=== PATIENT | male | born 1940 | race Caucasian/White ===

== ENCOUNTER 2018-08-16 14:46 | Observation (INO) ==
[2018-08-16] MEDS ORDERED: 0.9 % Sodium Chloride 1,000 ML IVC ONE ×2 (15:31→18:06)
--- NOTE | 2018-08-16 15:32 | Emergency Department Note ---
Disposition Clinical Impression: Acute kidney injury Disposition: Admitted As Inpatient Condition: Good Time of Disposition: 18:04 Recheck wound or abnormal lab - General Chief Complaint: ED Recheck/Abnormal Lab/Rx Stated Complaint: Abnormal Labs Time Seen by Provider: 08/16/18 15:09 Source: patient, family (Daughter) Mode of arrival: ambulatory Limitations: no limitations Nursing Notes Reviewed: Yes Vital Signs Reviewed: Yes - History of Present Illness HPI Narrative: 78-year-old male history of chronic kidney disease, diabetes, hypertension presents to the emergency department for abnormal labs. States over the past few days he has been having increased fatigue and leg cramping. He was seen by his primary care provider today were lab work was performed. He was sent home a round noon was called with abnormal results and told to come back for reevaluation. Review of his labs shows an elevated potassium of 5.2 in a creatinine of 1.9. This appears above baseline. He is also being treated for deep vein thrombosis on Xarelto over the past 5 weeks. He denies any other s ymptoms such as lightheadedness, chest pain, shortness of breath, nausea, vomiting. He reports a good diet. Reports darker urine denies any dysuria. Denies any G.I. bleed symptoms. He takes lisinopril as well as a thiazide. He does not take any potassium supplements. Pt Subjective Complaint: abnormal lab(s) - Related Data Home Medications Medication Instructions Recorded Confirmed Furosemide [Lasix] 20 mg PO DAILY 05/02/17 08/16/18 Insulin DETEMIR [Levemir Flextouch] 45 unit SQ HS 05/02/17 08/16/18 Lisinopril [Zestril] 40 mg PO DAILY 05/02/17 08/16/18 Metformin HCl [Glumetza] 500 mg PO BID 05/22/18 08/16/18 Levothyroxine [Synthroid] 150 mcg PO DAILY@0630 08/16/18 08/16/18 Previous Rx's Medication Instructions Recorded Aspirin Enteric Coated [Aspirin EC] 81 mg PO DAILY #30 tablet. 05/23/18 Rivaroxaban [Xarelto] 1 dose PO AD 30 Days pack 07/06/18 Allergies Allergy/AdvReac Type Severity Reaction Status Date / Time No Known Allergies Allergy Verified 05/22/18 21:56 All systems ED: reviewed and negative except as stated. Review of Systems: As Per HPI Constitutional: Reports: weakness. Denies: fever, chills ENT ED: Denies: congestion Cardiovascular: Denies: chest pain Respiratory: Denies: dyspnea, hemoptysis Gastrointestinal: Denies: abdominal pain, nausea, vomiting, diarrhea, hematemesis, melena, hematochezia Genitourinary: Denies: urgency, dysuria, hematuria Musculoskeletal: Denies: back pain Neurological: Denies: headache Past Medical History - Past Medical History Attestation: Yes The following information was validated with the patient. Source: patient Medical history: Reports: DVT, diabetes, hypertension, thyroid disease Surgical history: Reports: appendectomy, cholecystectomy, herniorrhaphy Psychiatric history: Reports: no psych history - Social History Smoking Status: Former smoker Smokeless Tobacco Status: No Alcohol use: Reports: none Drug use: Reports: none Physical Exam - General Limitations: no limitations General appearance: alert, in no apparent distress - Head Head exam: atraumatic, normocephalic, normal inspection - Eye Eye exam: Present: normal appearance, EOMI - ENT ENT exam: normal exam, normal oropharynx, mucous membranes moist - Neck Neck exam: Present: normal inspection, full ROM, trachea midline - Chest Chest inspection: Present: normal inspection, symmetric chest wall rise - Respiratory Respiratory exam: Present: normal lung sounds bilaterally. Absent: respiratory distress, wheezes - Cardiovascular Cardiovascular exam: Present: regular rate, normal rhythm, normal heart sounds - Expanded Cardiovascular Exam Peripheral pulses: 2+: radial (R), radial (L) - Abdominal Exam Abdominal exam: Present: soft, Non-Tender, normal bowel sounds. Absent: tenderness, distention, guarding, rebound, rigidity - Extremities Exam Extremities exam: Present: normal inspection, full ROM, normal capillary refill. Absent: tenderness, pedal edema - Back Exam Back exam: Present: normal inspection, full ROM. Absent: tenderness - Neurological Exam Neurological exam: Present: alert, oriented X3 - Psychiatric Psychiatric exam: Present: normal affect, normal mood - Skin Skin exam: Present: warm, dry, intact, normal color. Absent: rash, cyanosis, diaphoresis Course Course Narrative: Patient presents with abnormal labs. States past 2 days sees is not been feeling well with cramping in his leg can increased fatigue. Labs performed by his primary care provider showed elevated potassium 5.2 and elevated creatinine 1.9. Will repeat labs here in fluid hydrate. States after his outpatient visit he went home drink some lemonade and ate a sandwich. Reports otherwise normal diet. Disposition pending workup. - Reevaluation(s) Reevaluation #1: Repeat labs shows a rising creatinine of 2. His potassium is stable at 5.2. His EKG does not reveal any ischemic findings. No peak T waves they are similar to prior EKG. His QRS is 96 [place] 174. At this time recommend admission for further observation and evaluation. His urinalysis does not appear consistent with infection. Impression is acute kidney injury. Time: 18:03 - Consultations Consultation #1: Spoke with on-call hospitalist yoli Huertas to admit for JEANETTE. No further orders at this time Time: 18:03 Vital Signs Temperature 97.9 F 08/16/18 15:00 Pulse Rate 55 08/16/18 15:00 Respiratory Rate 18 08/16/18 15:00 Blood Pressure 115/67 08/16/18 15:00 O2 Sat by Pulse Oximetry 97 08/16/18 15:00 Temperature 97.9 F 08/16/18 15:20 Pulse Rate 48 08/16/18 17:20 Respiratory Rate 16 08/16/18 17:20 Blood Pressure 151/73 08/16/18 17:20 O2 Sat by Pulse Oximetry 100 08/16/18 17:20 Oxygen Delivery Oxygen Delivery Room Air Recheck wound or abnormal lab - MDM Narrative Medical decision making narrative: Patient was discussed with my attending physician who agrees with ED management and final disposition. They independently evaluated the patient. Please refer to their attestation to this encounter for additional information. This note was generated by [employer] voice recognition software and as a result grammatical or spelling errors may occur using this program. - Medical Records Medical records reviewed: Yes I reviewed the patient's medical records. - Lab Data Lab results reviewed: Yes I reviewed the patient's lab results. Result diagrams: 08/16/18 15:41 Lab Results 08/16/18 08/16/18 Range/Units 15:41 16:08 Sodium 137 (136-145) mEq/L Potassium 5.2 H (3.5-5.1) mEq/L Chloride 104 (98-107) mEq/L Carbon Dioxide 25 (23-29) mEq/L BUN 37 H (8-23) mg/dL Creatinine 2.04 H (0.70-1.30) mg/dL Est GFR ( Amer) 38 L (> 60) Est GFR (Non-Af Amer) 32 L (> 60) BUN/Creatinine Ratio 18 (6-26) Glucose 290 H (70-105) mg/dL Calculated Osmolality 303 H (280-300) Calcium 12.8 H (8.6-10.3) mg/dL Urine Color Dark Yellow (Yellow) Urine Clarity Clear (Clear) Urine pH 5.5 (5.0-8.0) pH Units Ur Specific [place] 1.024 (1.010-1.025) Urine Protein Negative (Neg-Trace) mg/dL Urine Glucose (UA) 250 H (Normal) mg/dL Urine Ketones Negative (Negative) mg/dL Urine Blood Negative (Negative) Urine Nitrite Negative (Negative) Urine Bilirubin Negative (Negative) Urine Urobilinogen Normal (Normal) mg/dL Ur Leukocyte Esterase Negative (Negative) Ur Culture Indicated? NO (NO) - EKG Data EKG attestation: Yes I reviewed and interpreted this EKG. EKG results narrative: EKG performed 1531 sinus bradycardia 49 beats per minute, no ST elevation or depression, intervals within normal limits [place] interval 174 QRS 96 QT QTC 405 366. Compared to prior EKG performed 07/06/2017 which shows similar consistent findings. No acute ischemic changes. Attestation Statement - Attestation Attestation: I, Kenton Bazzi, examined this patient and my medical decision-making was reviewed with the IT SUPPORT TECHNICIAN/PA/Advanced Practice Nurse/Resident Physician. I agree with the documented findings, disposition and treatment plan as described except to the extent set forth below. 78-year-old male presents emergency Department with concerns of abnormal labs. Patient had outpatient labs taken by his primary care provider which showed elevated creatinine. Patient does state that he is been mildly weak and fatigued over the past few days however he denies vomiting, diarrhea, recent changes in his medications. He states his diet has not changed. He had elevated creatinine on recheck the emergency department. He is awake alert and answering questions appropriately. Vital signs are stable in emergency department. He has no specific complaints other than mild weakness and fatigue. Patient will be admitted to the hospitalist for further treatment of his JEANETTE. Vital signs stable in emergency department.
[2018-08-16 16:25] LABS: Bilirubin,Urine Negative (Negative); Blood,Urine Negative (Negative); Clarity,Urine Clear (Clear); Color,Urine Dark Yellow (Yellow); Glucose,Urine (UA) 250 mg/dL (Normal); Ketones,Urine Negative (Negative); Leukocyte Esterase,Urine Negative (Negative); Nitrite,Urine Negative (Negative); PH,Urine 5.5 pH Units (5.0-8.0); Protein,Urine Negative (Neg-Trace); Specific Gravity,Urine 1.024 (1.010-1.025); Urobilinogen,Urine Normal (Normal)
[2018-08-16 16:29] LABS: Calcium 12.8 mg/dL (8.6-10.3); Potassium 5.2 mEq/L (3.5-5.1)
[2018-08-16] MEDS ORDERED: 0.9 % Sodium Chloride 1,000 ML IVC SCH ×2 (18:15→18:50)
[2018-08-16] MEDS ORDERED: Naloxone 0.4 MG/ML INJ IVP PRN (18:18)
--- NOTE | 2018-08-16 18:21 | Internal Med History&Physical ---
Date of Encounter: 08/16/18 Time of Encounter: 18:19 Internal Medicine - H&P: HPI Chief complaint: abnormal labs Plans for Post Hospital Care: Home History of present illness: Mr. Guerra is a 78 year old male with past medical history of diabetes, hypertension, hypothyroidism, prostate cancer status post surgery, hyperparathyroidism who recently was diagnosed with DVT and started on was also went to PCP for complaint of fatigue and leg cramps was found to have abnormal labs ordered by PCP and was asked to come to ER. Patient takes lisinopril, metformin, levothyroxine, aspirin xarelto. Patient had left leg DVT diagnosed which was unprovoked and was started on xarelto. Patient has known hyperparathyroidism and was supposed to follow-up with ENT sewn for consideration of parathyroidectomy. Patient denies any other complaints besides 's fatigue necessary and leg cramps. Denies any chest pain difficulty breathing. Feels his lower extremity swelling has decreased. Denies any abdominal pain. Patient Showed JEANETTE and mild hyperkalemia. Patient has known history of sinus bradycardia. He denies any chest pain, palpitations and lig htheadedness or dizziness. He he mows his lawn by himself and denies any symptoms with exertion. Past Med Surg Social Fam HX - Past Medical History Medical history: DVT, diabetes, hypertension, thyroid disease Additional medical history: prostate cancer Psychiatric history: no psych history - Past Surgical History Surgical History: appendectomy, cholecystectomy, herniorrhaphy Additional surgical history: back sx, prostectomy - Social History Smoking Status: Former smoker Smokeless Tobacco Status: No Alcohol use: none Drug use: none - Additional Family History Additional family history: non contributory Internal Medicine - H&P: Meds Furosemide [Lasix] 20 mg PO DAILY 05/02/17 [History] Insulin DETEMIR [Levemir Flextouch] 45 unit SQ HS 05/02/17 [History] Lisinopril [Zestril] 40 mg PO DAILY 05/02/17 [History] Metformin HCl [Glumetza] 500 mg PO BID 05/22/18 [History] Aspirin Enteric Coated [Aspirin EC] 81 mg PO DAILY #30 tablet. 05/23/18 [Rx] Rivaroxaban [Xarelto] 1 dose PO AD 30 Days pack 07/06/18 [Rx] Levothyroxine [Synthroid] 150 mcg PO DAILY@0630 08/16/18 [History] Allergy/AdvReac Type Severity Reaction Status Date / Time No Known Allergies Allergy Verified 05/22/18 21:56 All Systems PM: A 10-system review of systems was performed and is negative for pertinent findings except as documented above in the HPI. - Constitutional Vitals: Temp Pulse Resp BP Pulse Ox 97.9 F 48 16 151/73 100 08/16/18 15:20 08/16/18 17:20 08/16/18 17:20 08/16/18 17:20 08/16/18 17:20 Exam: Constitutional: Vitals as noted. Conversant. No Apparent Distress. Eyes : Sclera white, conjunctiva clear, no lid lag, PEARLA. ENT : Grossly normal hearing. Oropharyngeal exam unremarkable. Respiratory : Clear to auscultation bilaterally. No accessory muscle use, rales, rhonchi or wheezes Cardiovascular : bradycardia, +S1, +S2. no murmur, gallop, rubs. No chest wall tenderness GI/Abdominal : Soft, Non-tender, Non-distended, normal bowel sounds, soft, no peritoneal signs. no orgenomegaly or mass appreciated. no hernia. Musculoskeletal: no deformity noted. trace pedal edema b/l. warm extremities, pulses palpable and symmetrical in UE/LE. no calf tenderness. Neurological: AO X3, CN II-XII grossly intact, grossly normal motor and sensory exam. Skin: No skin rash, lesions or ulcers noted. Internal Med - H&P Results - Labs CBC & Chem 7: 08/16/18 15:41 Labs: BMP 08/16/18 15:41 Sodium 137 Potassium 5.2 H Chloride 104 Carbon Dioxide 25 BUN 37 H Creatinine 2.04 H Glucose 290 H Calcium 12.8 H Urine 08/16/18 Range/Units 16:08 Urine Color Dark Yellow (Yellow) Urine Clarity Clear (Clear) Urine pH 5.5 (5.0-8.0) pH Units Ur Specific [place] 1.024 (1.010-1.025) Urine Protein Negative (Neg-Trace) mg/dL Urine Glucose (UA) 250 H (Normal) mg/dL - EKG Data -: EKG Interpreted by Myself EKG shows normal: sinus rhythm (sinus bradycardia) - Assessment and Plan (1) Acute kidney injury Current Visit: Yes Status: Acute Assessment and plan: Likely related to hypercalcemia from hyperparathyroidism Patient received 2 L of fluid in ER. We will continue patient on maintenance IV fluids after finishing second bolus. Hold home lisinopril metformin and Lasix. Obtain a urine sodium, creatinine and osmolality and urea. (2) Bradycardia Current Visit: No Status: Acute Assessment and plan: Known history of sinus bradycardia without any symptoms monitor for now. (3) DVT prophylaxis Current Visit: No Status: Acute Assessment and plan: On xarelto for recently diagnosed DVT on left leg. (4) History of thyroidectomy Current Visit: No Status: Acute Assessment and plan: Has secondary hypo-thyroidism. Continue home levothyroxine. (5) Hypercalcemia Current Visit: No Status: Acute (6) Hyperparathyroidism Current Visit: No Status: Acute Assessment and plan: Known history and is to follow with ENT for consideration of parathyroidectomy as outpatient. (7) Hypertension Current Visit: No Status: Acute Assessment and plan: We will hold home lisinopril and Lasix. Keep on when necessary hydralazine for now. Qualifiers: Hypertension type: essential hypertension Qualified Code(s): I10 - Essential (primary) hypertension (8) Hypothyroidism Current Visit: No Status: Acute Assessment and plan: As above Qualifiers: Hypothyroidism type: acquired Qualified Code(s): E03.9 - Hypothyroidism, unspecified (9) Diabetes mellitus Current Visit: No Status: Chronic Assessment and plan: Keep patient on sliding scale insulin and Accu-Cheks and Levemir 30. Qualifiers: Diabetes mellitus type: type 2 Diabetes mellitus group home insulin use: with group home use Diabetes mellitus complication status: without complication Qualified Code(s): E11.9 - Type 2 diabetes mellitus without complications; Z79.4 - assisted (current) use of insulin - Time Spent With Patient Total time spent is greater than 50% in coordination of care (as documented) at patient's floor/unit and/or counseling patient:
[2018-08-16] MEDS ORDERED: *HR* Rivaroxaban 10 MG TABLET PO SCH (18:30)
[2018-08-16] MEDS ORDERED: Insulin DETEMIR 100 UNIT/ML X5UNITS SQ SCH (21:00)
[2018-08-16 21:13] LABS: Sodium, Urine 130.9 mEq/L
[2018-08-17 04:37] LABS: Calcium 11.3 mg/dL (8.6-10.3); Potassium 4.6 mEq/L (3.5-5.1)
[2018-08-17 06:31] LABS: Albumin 3.6 g/dL (3.5-5.7); Albumin/Globulin Ratio 1.7 (1.1-2.2); Bilirubin,Direct 0.2 mg/dL (0.0-0.2); Bilirubin,Indirect 0.5 mg/dL (0.0-1.2); Bilirubin,Total 0.7 mg/dL (0.3-1.0); Globulin 2.1 g/dL (2.4-3.5); Total Protein 5.7 g/dL (6.4-8.9)
[2018-08-17] MEDS ORDERED: *HR* Dextrose 50 % in Water (Syg) 50 ML SYRINGE IVP PRN (07:30)
[2018-08-17] MEDS ORDERED: D5% in Water 1,000 ML IVC PRN (07:30)
[2018-08-17] MEDS ORDERED: Dextrose Gel 15 GM/37.5 ML TUBE PO PRN ×2 (07:30)
[2018-08-17] MEDS: Insulin LISPRO 300 UNITS/3 ML VIAL SQ SCH ×2 (07:56→12:02)
[2018-08-17] MEDS ORDERED: Aspirin Enteric Coated 81 MG Tablet PO SCH (09:00)
[2018-08-17 09:37] LABS: VBG Ionized Calcium 1.59 mmol/L (1.15-1.35)
[2018-08-17] MEDS ORDERED: 0.9 % Sodium Chloride 1,000 ML IVC SCH (10:42)
[2018-08-17 11:45] VITALS: BP 157/75
--- NOTE | 2018-08-17 13:22 | Electrocardiograph Report ---
[address] [address] Test Date: 2018-08-16 Pat Name: Amrik Guerra Department: [id number] Room: 2A24 Gender: M Weapons Officer: : 1940 Requested By: Marquise Melgoza Order Number: [id number] Reading MD: Braden Murillo Measurements Intervals [place] Rate: 49 P: -15 [place]: 174 QRS: -9 QRSD: 96 T: 32 QT: 405 QTc: 366 Interpretive Statements Sinus bradycardia Ventricular premature complex Low voltage, precordial leads Abnormal R-wave progression, early transition Electronically Signed On 08-17-2018 13:21:02 EDT by Braden Murillo
[2018-08-17 15:18] LABS: Calcium 11.2 mg/dL (8.6-10.3); Potassium 4.8 mEq/L (3.5-5.1)
--- NOTE | 2018-08-17 15:44 | Discharge Summary ---
- NOTES TO OUTPATIENT PROVIDER Notes to Outpatient Provider: Patient would need close follow-up for his hypercalcemia and renal function. May need reconsideration of hyper parathyroidectomy if this continues to recur. Held patient's Lasix and lisinopril for now. Follow-up BMP within 3 days Date of Encounter: 08/17/18 Time of Encounter: 16:22 - Discharge Diagnosis (1) Acute kidney injury Priority: Primary Status: Acute (2) Bradycardia Priority: Secondary Status: Acute (3) DVT prophylaxis Priority: Secondary Status: Acute (4) History of thyroidectomy Priority: Secondary Status: Acute (5) Hypercalcemia Priority: Primary Status: Acute (6) Hyperparathyroidism Priority: Secondary Status: Acute (7) Hypertension Priority: Secondary Status: Acute Qualifiers: Hypertension type: essential hypertension Qualified Code(s): I10 - Essential (primary) hypertension (8) Hypothyroidism Priority: Secondary Status: Acute Qualifiers: Hypothyroidism type: acquired Qualified Code(s): E03.9 - Hypothyroidism, unspecified (9) Diabetes mellitus Priority: Secondary Status: Chronic Qualifiers: Diabetes mellitus type: type 2 Diabetes mellitus terminal worker insulin use: with custodial use Diabetes mellitus complication status: without complication Qualified Code(s): E11.9 - Type 2 diabetes mellitus without complications; Z79.4 - assisted (current) use of insulin Hospital course: Mr. Guerra is a 78 year old male with past medical history of diabetes, hypertension, hypothyroidism, hyperparathyroidism came in with abnormal labs with elevated potassium and JEANETTE. Patient was found to have significant hypercalcemia which likely led to JEANETTE from dehydration. Patient was given IV fluids after which his renal function improved and potassium normalize. His calcium improved. He is making good urine. He is insistent to leave and go home. Discussed need for more hydration does not want to stay in hospital. She will reasonable to follow-up as outpatient as soon as possible in early next week. We will give prescription for follow-up blood work early next week. We will stop lisinopril and Lasix on discharge. I asked the patient to drink plenty of water for at least 2-3 days. He understands the risk of leaving earlier and promised keep himself hydrated and follow up for appointments. He is at risk of developing again given his hypercalcemia and may need parathyroidectomy if continues to happen. Discharge discussed with: patient, family, nurse, social work - Time Spent with Patient Total time spent providing and/or coordinating discharge services: Time spent: Greater than 30 minutes (40) - Discharge Medications Prescriptions: Continued Insulin DETEMIR [Levemir Flextouch] 45 unit SQ HS Metformin HCl [Glumetza] 500 mg PO BID Aspirin Enteric Coated [Aspirin EC] 81 mg PO DAILY #30 tablet. Levothyroxine [Synthroid] 150 mcg PO DAILY@0630 Rivaroxaban [Xarelto] 20 mg PO 1700 Discontinued Lisinopril [Zestril] 40 mg PO DAILY Furosemide [Lasix] 20 mg PO DAILY Home Medications: Insulin DETEMIR [Levemir Flextouch] 45 unit SQ HS 05/02/17 [History] Metformin HCl [Glumetza] 500 mg PO BID 05/22/18 [History] Aspirin Enteric Coated [Aspirin EC] 81 mg PO DAILY #30 tablet. 05/23/18 [Rx] Levothyroxine [Synthroid] 150 mcg PO DAILY@0630 08/16/18 [History] Rivaroxaban [Xarelto] 20 mg PO 1700 08/17/18 [History] Allergies/Adverse Reactions: Allergy/AdvReac Type Severity Reaction Status Date / Time No Known Allergies Allergy Verified 05/22/18 21:56 Date of admission: 08/16/18 18:39 Primary care physician: Garcia Sandhu Jr, MD Discharging clinician: Rodney Emanuel - Constitutional Vitals: Temp Pulse Resp BP Pulse Ox 98.0 F 51 16 157/75 96 08/17/18 11:44 08/17/18 11:44 08/17/18 11:44 08/17/18 11:44 08/17/18 11:44 Exam: General: In no acute distress. Respiratory exam: CTAB. no accessory muscle use, rales, rhonchi, wheezes Cardiovascular exam: bradycardia, +S1, +S2. no murmur, gallop, rubs. GI/Abdominal exam: Non-tender, Non-distended, normal bowel sounds, soft, no peritoneal signs. Extremities exam: no pedal edema, pulses palpable in b/l lower extremities. no calf tenderness Neurological exam: CN II-XII intact, AO X3, no focal deficits. Skin exam: No skin rash - Patient Status Disposition: Home, Self-Care Condition: Good - Discharge Instructions Instructions: Hypercalcemia (DC) Follow Up With: Garcia Sandhu Jr, MD [Primary Care Provider] - 08/22/18 1:45 pm - Diet and Activity Activity: increase activity as tolerated
== END 2018-08-17 16:45 | disposition home or self-care (01) ==
LOC: EMEROOARM 14:46 → 2ANU 14:46
PROVIDERS: ADMIT Internal Medicine Nephrology; ATTEND Internal Medicine Nephrology

== ENCOUNTER 2020-07-09 11:46 | Observation (INO) ==
[2020-07-09 12:36] LABS: Basophils % 0.3 %; Eosinophils # 0.1 K/mcL (0.0-0.6); Eosinophils % 0.5 %; Hematocrit 39.1 % (37.5-50.1); Hemoglobin 12.4 g/dL (12.9-16.9); Immature Granulocytes % 1.1 % (0-4); Lymphocytes # 0.6 K/mcL (0.6-4.6); Lymphocytes % 5.9 %; Mean Corpuscular HGB Conc 31.7 g/dL (31.6-35.5); Mean Corpuscular Hemoglobin 28.1 pg (28.0-33.3); Mean Corpuscular Volume 88.7 fL (83.0-100.0); Mean Platelet Volume 10.6 fL (9.4-12.4); Monocytes % 9.5 %; Neutrophils # 8.8 K/mcL (1.6-8.9); Platelet Count 123 K/mcL (140-400); Red Blood Count 4.41 M/mcL (4.19-5.50); Red Cell Distribution Width 12.5 % (11.5-14.5); Segmented Neutrophils % 82.7 %; White Blood Count 10.7 K/mcL (4.3-11.1)
[2020-07-09 12:56] LABS: Calcium 12.6 mg/dL (8.6-10.3); Potassium 4.1 mEq/L (3.5-5.1)
[2020-07-09 15:06] LABS: Bacteria,Urine Few per hpf (None-Few); Bilirubin,Urine Negative (Negative); Blood,Urine Large (Negative); Clarity,Urine Turbid (Clear); Color,Urine Yellow (Yellow); Glucose,Urine (UA) Normal (Normal); Hyaline Casts,Urine Few per lpf (None Seen); Ketones,Urine Negative (Negative); Leukocyte Esterase,Urine Trace (Negative); Mucus,Urine Few per lpf (None-Few); Nitrite,Urine Positive (Negative); Protein,Urine 200 mg/dL (Neg-Trace); RBC,Urine 0-3 per hpf (0-3); Specific Gravity,Urine 1.024 (1.010-1.025); Squamous Epithelial Cell,Urine Few per hpf (None-Few); Urobilinogen,Urine Normal (Normal); WBC,Urine 15-30 per hpf (0-3)
[2020-07-09] MEDS ORDERED: cefTRIAXone 1,000 MG in Water for inj. (sterile) 10 ML IVP ONE (15:33)
[2020-07-09] MEDS ORDERED: Ondansetron 4 MG/2 ML VIAL IVP PRN (16:19)
[2020-07-09] MEDS ORDERED: Naloxone 0.4 MG/ML INJ IVP PRN (16:19)
[2020-07-09] MEDS ORDERED: D5% in Water 1,000 ML IVC PRN (16:46)
[2020-07-09] MEDS ORDERED: *HR* Dextrose 50 % in Water (Vial) 50 ML VIAL IVP PRN (16:46)
[2020-07-09] MEDS ORDERED: Dextrose Gel 15 GM/37.5 ML TUBE PO PRN ×2 (16:46)
[2020-07-09] MEDS ORDERED: Insulin DETEMIR 100 UNIT/ML X5UNITS SUBQ SCH (21:00)
[2020-07-09] MEDS: hydrALAZINE 25 MG TABLET PO SCH (21:15)
[2020-07-09] MEDS: *HR* Heparin 5,000 UNIT/ML VIAL SQ SCH (21:15)
[2020-07-09] MEDS: Insulin DETEMIR 100 UNIT/ML X5UNITS SUBQ SCH (21:16)
[2020-07-10 05:44] LABS: Eosinophils % 0.1 %; Lymphocytes % 5.1 %; Mean Corpuscular Volume 89.5 fL (83.0-100.0); Red Cell Distribution Width 12.6 % (11.5-14.5)
[2020-07-10 05:46] LABS: Basophils % 0.3 %; Hematocrit 39.2 % (37.5-50.1); Hemoglobin 12.4 g/dL (12.9-16.9); Lymphocytes # 0.7 K/mcL (0.6-4.6); Mean Corpuscular HGB Conc 31.6 g/dL (31.6-35.5); Mean Corpuscular Hemoglobin 28.3 pg (28.0-33.3); Monocytes # 1.2 K/mcL (0.0-1.3); Monocytes % 9.1 %; Neutrophils # 11.5 K/mcL (1.6-8.9); Red Blood Count 4.38 M/mcL (4.19-5.50); Segmented Neutrophils % 84.4 %; White Blood Count 13.6 K/mcL (4.3-11.1)
[2020-07-10 05:59] LABS: Platelet Count 99 K/mcL (140-400)
[2020-07-10 06:02] LABS: Albumin 3.4 g/dL (3.5-5.7); Albumin/Globulin Ratio 1.2 (1.1-2.2); Bilirubin,Total 1.3 mg/dL (0.3-1.0); Globulin 2.9 g/dL (2.4-3.5); Potassium 4.4 mEq/L (3.5-5.1); Total Protein 6.3 g/dL (6.4-8.9)
[2020-07-10] MEDS: *HR* Heparin 5,000 UNIT/ML VIAL SQ SCH ×2 (06:15→18:35)
[2020-07-10] MEDS ORDERED: cefTRIAXone 1,000 MG in Water for inj. (sterile) 10 ML IVP SCH (09:00)
[2020-07-10] MEDS ORDERED: Aspirin Enteric Coated 81 MG Tablet PO SCH (09:00)
[2020-07-10] MEDS ORDERED: Cyanocobalamin (B-12) 1,000 MCG TABLET PO SCH (09:00)
[2020-07-10] MEDS: 0.9 % Sodium Chloride 1,000 ML IVC SCH (10:04)
[2020-07-10] MEDS ORDERED: 0.9 % Sodium Chloride 1,000 ML IVC SCH (14:30)
[2020-07-10] MEDS: hydrALAZINE 25 MG TABLET PO SCH ×3 (14:34→22:55)
[2020-07-10] MEDS: Insulin LISPRO 300 UNITS/3 ML VIAL SUBQ SCH ×2 (14:34→18:35)
[2020-07-10] MEDS: Insulin DETEMIR 100 UNIT/ML X5UNITS SUBQ SCH (22:55)
[2020-07-11 00:05] LABS: ABG Base Excess -3 mEq/L (-2 to 3); ABG HCO3 20 mEq/L (21-27); ABG Oxygen Saturation 99 % (95-98); ABG PCO2 29 mmHg (35-45); ABG PH 7.45 pH Units (7.32-7.45); ABG PO2 123 mmHg (85-104); ABG TCO2 21 mEq/L (20-26)
[2020-07-11 02:22] VITALS: BP 99/65
[2020-07-11] MEDS ORDERED: 0.9 % Sodium Chloride 500 ML ONE (02:41)
[2020-07-11] MEDS ORDERED: 0.9 % Sodium Chloride 500 ML IVC ONE ×3 (02:42→04:22)
[2020-07-11 02:43] LABS: ABG Base Excess -3 mEq/L (-2 to 3); ABG HCO3 19 mEq/L (21-27); ABG Oxygen Saturation 87 % (95-98); ABG PCO2 27 mmHg (35-45); ABG PH 7.46 pH Units (7.32-7.45); ABG PO2 49 mmHg (85-104); ABG TCO2 20 mEq/L (20-26)
[2020-07-11 02:52] LABS: ABG Base Excess -4 mEq/L (-2 to 3); ABG HCO3 19 mEq/L (21-27); ABG Oxygen Saturation 88 % (95-98); ABG PCO2 26 mmHg (35-45); ABG PH 7.46 pH Units (7.32-7.45); ABG PO2 50 mmHg (85-104); ABG TCO2 20 mEq/L (20-26)
[2020-07-11] MEDS ORDERED: *HR* Heparin 5,000 UNIT/ML VIAL IVP ONE (03:54)
[2020-07-11] MEDS ORDERED: *HR* Heparin 5,000 UNIT/ML VIAL IVP PRN ×2 (03:54)
[2020-07-11] MEDS ORDERED: Heparin 25,000UNIT/250ML 1/2NS 25,000 UNIT/250 ML IV.SOLN IVC SCH (04:00)
[2020-07-13 17:35] LABS: Alpha 2 Globulin (PEP) 0.95 g/dL (0.48-1.05); Beta Globulin (PEP) 0.79 g/dL (0.48-1.10)
[2020-07-14 11:25] LABS: IFE Reflexed NOT DONE
== END 2020-07-11 08:50 | disposition expired ==
LOC: 3ANU 11:46 → EMEROOARM 11:46 → SUATTDRO 18:06 → 3ANU 18:41
PROVIDERS: ADMIT Internal Medicine; ATTEND Family Medicine